=== PATIENT | female | born 1965 | race Two or more races ===

== ENCOUNTER 2019-07-25 06:57 | Day surgery (SDC) | payer OTHER ==
[~2019-07-25 06:57] MED LIST: BONIVA150 MG PO; LEVO-T50 MCG PO; PROAIR HFA8.5 GM IH; SINGULAIR10 MG PO; SYMBICORT; XALATAN; ZINC LOZENGES1 EACH PO
== END 2019-07-25 17:40 | disposition home or self-care (01) ==
LOC: CIR.AMB 06:57 → SURG 08:45 → EDSTATUS 08:45 → CIR.AMB 17:40
DX: N20.0 Calculus of kidney (principal)